=== PATIENT | female | born 1995 | race Caucasian/White ===

== ENCOUNTER 2019-05-07 09:25 | Inpatient (IN) | payer OTHER ==
[~2019-05-07] VITALS: Ht 154.9 cm; Wt 78.5 kg
[~2019-05-07 09:25] MED LIST: ALLEGRA ALLERG180 MG PO
[2019-05-18] MEDS ORDERED: PRENATAL TABLE1 EAC1 PO (00:30)
== END 2019-05-20 11:07 | disposition home or self-care (01) | DRG 807 ==
LOC: OB/GYN 05-15 12:30 → LDR 05-18 00:09 → SURG-SUITE 05-18 14:05 → OB/GYN 05-29 12:30
PROVIDERS: ADMIT Specialist
PROC: 10E0XZZ Delivery of Products of Conception, External Approach (ICD-10-PCS; principal; 2019-05-18)
PROC: 3E033VJ Introduction of Other Hormone into Peripheral Vein, Percutaneous Approach (ICD-10-PCS; 2019-05-18)
PROC: 4A1HXCZ Monitoring of Products of Conception, Cardiac Rate, External Approach (ICD-10-PCS; 2019-05-18)
DX: O80 Encounter for full-term uncomplicated delivery (principal); Z37.0 Single live birth; Z3A.38 38 weeks gestation of pregnancy

== ENCOUNTER 2020-01-07 11:28 | Emergency (ER) | payer OTHER ==
[~2020-01-07] VITALS: Ht 157.5 cm; Wt 70.3 kg
[~2020-01-07 11:28] MED LIST changes: +PRENATAL TABLE1 EAC1 PO
== END 2020-01-07 17:40 | disposition home or self-care (01) ==
LOC: ER 11:28
DX: K29.00 Acute gastritis without bleeding (principal)

== ENCOUNTER 2021-07-19 08:16 | Outpatient (CLI) | payer OTHER | END 2021-07-19 09:08 | disposition home or self-care (01) | LOC: PRENATAL 08:16 | PROVIDERS: ATTEND Obstetrics & Gynecology Maternal & Fetal Medicine | DX: O35.0XX1 Maternal care for (suspected) central nervous system malformation in fetus, fetus 1 (principal); O35.3XX1 Maternal care for (suspected) damage to fetus from viral disease in mother, fetus 1; O98.513 Other viral diseases complicating pregnancy, third trimester; Z36.89 Encounter for other specified antenatal screening; Z3A.30 30 weeks gestation of pregnancy ==

== ENCOUNTER 2021-09-28 05:36 | Inpatient (IN) | payer OTHER ==
[~2021-09-28] VITALS: Ht 154.9 cm; Wt 81.6 kg
[2021-09-28] MEDS ORDERED: PRENATAL CAPLE1 EAC1 PO (06:37)
== END 2021-09-30 13:49 | disposition home or self-care (01) | DRG 807 ==
LOC: LDR 05:36 → OB/GYN 11:01
PROVIDERS: ADMIT Specialist; ATTEND Specialist
PROC: 10E0XZZ Delivery of Products of Conception, External Approach (ICD-10-PCS; principal; 2021-09-28)
PROC: 0W8NXZZ Division of Female Perineum, External Approach (ICD-10-PCS; 2021-09-28)
PROC: 4A1HXFZ Monitoring of Products of Conception, Cardiac Rhythm, External Approach (ICD-10-PCS; 2021-09-28)
DX: O80 Encounter for full-term uncomplicated delivery (principal); Z37.0 Single live birth; Z3A.39 39 weeks gestation of pregnancy